=== PATIENT | female | born 1970 | race Caucasian/White ===

== ENCOUNTER → 2016-06-30 | Outpatient (CLI) | payer OTHER ==
[~2016-06-30] MED LIST: LISINOPRIL10 MG PO; MIRALAX17 GM PO; NAPROXEN250 MG PO; NORCO 7.5-3251 EACH PO; SYNTHROID175 MCG PO
[2016-06-30 13:19] LABS: HEMOGLOBIN 13.5 gm/dl (12.3-15.3); RED BLOOD COUNT 4.57 M/UL (4.00-5.10); WHITE BLOOD COUNT 9.3 K/UL (4.5-11.0)
[2016-06-30 14:11] LABS: BUN/CREATININE RATIO 15 (0-10)
== END ==
LOC: OPSV2 12:28
PROVIDERS: Anesthesiology; Obstetrics & Gynecology
DX: Z01.812 Encounter for preprocedural laboratory examination (principal); N81.9 Female genital prolapse, unspecified
CPT/HCPCS: 36415; 80048; 81001; 85025

== ENCOUNTER 2016-07-09 08:16 | Observation (INO) | payer OTHER ==
[~2016-07-09] VITALS: Ht 170.2 cm; Wt 95.3 kg
[2016-07-09] MEDS ORDERED: SYNTHROID175 MCG PO (09:21)
[2016-07-09] MEDS ORDERED: LISINOPRIL10 MG PO (09:22)
[2016-07-10 03:03] LABS: HEMOGLOBIN 11.9 gm/dl (12.3-15.3)
--- NOTE | 2016-07-10 06:53 | NUR ---
0605 VAGINAL PACKING REMOVED WITHOUT DIFFICULTY. PT TOLERATED WELL.
[2016-07-11] MEDS ORDERED: NAPROXEN250 MG PO (19:34)
[2016-07-11] MEDS ORDERED: MIRALAX17 GM PO (19:35)
[2016-07-11] MEDS ORDERED: NORCO 7.5-3251 EACH PO (19:36)
== END 2016-07-11 21:26 | disposition home or self-care (01) ==
LOC: OR 08:16 → OB 15:20 → OR 15:20 → OB 07-10 10:32 → OR 07-11 21:26 → OB 07-11 21:26
PROVIDERS: ADMIT Obstetrics & Gynecology
PROC: 0TQD0ZZ Repair Urethra, Open Approach (ICD-10-PCS; 2016-07-09)
PROC: 0UT97ZZ Resection of Uterus, Via Natural or Artificial Opening (ICD-10-PCS; principal; 2016-07-09 11:15)
PROC: 0UTC7ZZ Resection of Cervix, Via Natural or Artificial Opening (ICD-10-PCS; 2016-07-09 11:15)
PROC: 0JQC0ZZ Repair Pelvic Region Subcutaneous Tissue and Fascia, Open Approach (ICD-10-PCS; 2016-07-09 11:15)
DX: N72 Inflammatory disease of cervix uteri (principal); N17.0 Acute kidney failure with tubular necrosis; N10 Acute pyelonephritis; N81.4 Uterovaginal prolapse, unspecified; N39.3 Stress incontinence (female) (male); R23.4 Changes in skin texture; I10 Essential (primary) hypertension; Z85.850 Personal history of malignant neoplasm of thyroid; Z79.899 Other long term (current) drug therapy; Z90.49 Acquired absence of other specified parts of digestive tract; Z98.51 Tubal ligation status; Z98.82 Breast implant status
CPT/HCPCS: 51702; 85014; 85018; 96361; 96366; 96374; C1769; C1771; G0378; J0690; J1100; J1885; J2250; J2270; J2405; J2710; J2795; J3010; J7120; Q0163